=== PATIENT | male | born 1990 | race Caucasian/White ===

== ENCOUNTER 2016-09-03 19:59 | Emergency (ER) | payer OTHER ==
[~2016-09-03] VITALS: Ht 190.5 cm; Wt 106.6 kg
[2016-09-04] MEDS ORDERED: TETANUS-DIPTH-ACEL PERTUSSIS 0.5ML SYRG IM ONE (03:45)
[2016-09-04] MEDS ORDERED: LIDOCAINE HCL 1 % PF INJ 2ML AMP IJ ONE (03:45)
[2016-09-04] MEDS ORDERED: LIDOCAINE W/ EPINEPHRINE 1% 20ML VIAL ONE (03:49)
[2016-09-04] MEDS ORDERED: LIDOCAINE W/ EPINEPHRINE 1% 20ML VIAL SC ONE (04:15)
[2016-09-04] MEDS ORDERED: NEOMYCIN-BACITRACIN-POLYM UNITDOSE PKG TOP OINT TOP ONE (04:15)
[2016-09-04 05:00] VITALS: BP 126/75
== END 2016-09-04 06:01 | disposition home or self-care (01) ==
LOC: ER 19:59
DX: S51.811A Laceration without foreign body of right forearm, initial encounter (principal); W26.9XXA Contact with unspecified sharp object(s), initial encounter; Y93.89 Activity, other specified; Y99.0 Civilian activity done for income or pay; Y92.69 Other specified industrial and construction area as the place of occurrence of the external cause
CPT/HCPCS: 12001; 90471; 90715